=== PATIENT | female | born 1935 | race Caucasian/White ===

== ENCOUNTER 2019-02-26 05:26 | Inpatient (IN) ==
[2019-02-18 15:11] LABS: HEMOGLOBIN A1C 5.8 % (4.8-6.0)
[2019-02-19 14:09] LABS: URINE SOURCE CLEAN CATCH
[2019-02-19 14:59] LABS: BASO# 0.03 X1000 (0.0-0.2); BASO% 0.3 % (0.0-0.8); EOS# 0.24 X1000 (0.0-0.7); EOS% 2.2 % (0.0-10.0); HEMATOCRIT 39.8 % (37.0-47.0); HEMOGLOBIN 12.7 g/dL (12.0-16.0); IMM GRAN# 0.04 X1000 (0.0-0.04); IMM GRAN% 0.4 % (0.0-0.5); LYMPH# 2.87 X1000 (1.2-3.4); LYMPH% 26.7 % (20.5-51.1); MCH 28.3 PG (27-31); MCHC 31.9 g/dL (33-37); MCV 88.8 FL (81-99); MONO# 0.92 X1000 (0.11-0.59); MONO% 8.6 % (1.7-9.3); MPV 11.1 FL (7.4-10.4); NEUT# 6.63 X1000 (1.4-6.5); NEUT% 61.8 % (42.2-75.2); PLT 244 X1000 (130-400); RBC 4.48 XMIL (4.2-5.4); RDW 13.4 % (11.5-14.5); WBC 10.73 X1000 (4.8-10.8)
[2019-02-19 15:01] LABS: INR 0.96; PROTIME 12.9 Seconds (11.0-16.0)
[2019-02-19 15:02] LABS: PTT 27.6 Seconds (22.3-41.8)
[2019-02-19 15:03] LABS: BILIRUBIN URINE NEGATIVE (NEGATIVE); BLOOD URINE NEGATIVE (NEGATIVE); COLOR YELLOW; GLUCOSE URINE NEGATIVE (NEGATIVE); KETONE URINE NEGATIVE (NEGATIVE); LEUKOCYTES URINE LARGE (NEGATIVE); NITRITE URINE NEGATIVE (NEGATIVE); PROTEIN URINE TRACE mg/dL (NEGATIVE); SP GRAVITY URINE 1.018; TURBIDITY URINE CLEAR (CLEAR); UR EPITHELIAL CELLS <10 /HPF (<10); URINE BACTERIA 1+ /HPF; URINE RBC <10 /HPF (<10); URINE WBC 20-40 /HPF (<10); UROBILINOGEN URINE NORMAL (NORMAL)
[2019-02-19 15:13] LABS: CALCIUM 9.1 mg/dL (8.8-10.2); CREATININE 0.9 mg/dL (0.5-0.9); POTASSIUM 3.2 mmol/L (3.5-5.1)
[2019-02-26] MEDS ORDERED: REGLAN ONE (05:56)
[2019-02-26] MEDS ORDERED: LYRICA ONE (05:56)
[2019-02-26] MEDS ORDERED: LR 1,000 ML ONE (05:56)
[2019-02-26] MEDS ORDERED: KEFZOL 1 GM/D5W 1 GM/50 ML IVPB ONE (05:56)
[2019-02-26] MEDS ORDERED: PEPCID ONE (05:56)
[2019-02-26] MEDS ORDERED: COLACE ONE (05:56)
[2019-02-26] MEDS ORDERED: DIPRIVAN 1% ONE (06:28)
[2019-02-26] MEDS ORDERED: XYLOCAINE-MPF 2% ONE ×2 (06:29→08:09)
[2019-02-26] MEDS ORDERED: FENTANYL ONE (06:44)
[2019-02-26] MEDS ORDERED: NEO-SYNEPHRINE ONE (06:45)
[2019-02-26] MEDS ORDERED: SODIUM CHLORIDE 0.9% 20 ML ONE (06:45)
[2019-02-26] MEDS ORDERED: SODIUM CHLORIDE 0.9% ONE (07:05)
[2019-02-26] MEDS ORDERED: DURAMORPH ONE (07:05)
[2019-02-26] MEDS ORDERED: CYKLOKAPRON 1,000 MG/NS 1,000 MG/100 ML IVPB ONE ×2 (07:05→07:06)
[2019-02-26] MEDS ORDERED: VANCOMYCIN ONE (07:05)
[2019-02-26] MEDS ORDERED: EXPAREL 1.3% ONE (07:05)
[2019-02-26] MEDS ORDERED: MARCAINE 0.25% PF ONE (07:05)
[2019-02-26] MEDS ORDERED: TORADOL ONE ×2 (07:05→07:35)
[2019-02-26] MEDS ORDERED: OFIRMEV 1000 MG/ISOTONIC SOLN 1,000 MG/100 ML BOTTLE ONE (08:15)
[2019-02-26] MEDS ORDERED: ZOFRAN ONE (08:15)
[2019-02-26] MEDS ORDERED: DECADRON ONE (08:15)
[2019-02-26] MEDS ORDERED: AMIDATE ONE (08:19)
[2019-02-26 08:31] LABS: URINE SOURCE CATH
[2019-02-26 08:49] LABS: BILIRUBIN URINE NEGATIVE (NEGATIVE); BLOOD URINE NEGATIVE (NEGATIVE); COLOR YELLOW; GLUCOSE URINE NEGATIVE (NEGATIVE); KETONE URINE NEGATIVE (NEGATIVE); LEUKOCYTES URINE NEGATIVE (NEGATIVE); NITRITE URINE NEGATIVE (NEGATIVE); PROTEIN URINE NEGATIVE (NEGATIVE); SP GRAVITY URINE 1.008; TURBIDITY URINE CLEAR (CLEAR); UR EPITHELIAL CELLS <10 /HPF (<10); URINE BACTERIA NEGATIVE /HPF; URINE RBC <10 /HPF (<10); URINE WBC <10 /HPF (<10); UROBILINOGEN URINE NORMAL (NORMAL)
[2019-02-26] MEDS ORDERED: NS 1,000 ML ONE (09:47)
[2019-02-26] MEDS ORDERED: ZOFRAN PO PRN (10:00)
[2019-02-26] MEDS ORDERED: MORPHINE IV PRN ×3 (10:00)
[2019-02-26] MEDS ORDERED: OXY IR PO PRN (10:00)
[2019-02-26] MEDS ORDERED: XANAX PO PRN (16:45)
[2019-02-26] MEDS: KEFZOL 1 GM/D5W 1 GM/50 ML IVPB IV SCH ×2 (16:51→23:00)
[2019-02-26] MEDS: TYLENOL PO SCH ×2 (16:52→20:03)
[2019-02-26] MEDS: OXY IR PO PRN ×2 (18:50→19:31)
[2019-02-26] MEDS: PERIDEX MT SCH (20:03)
[2019-02-26] MEDS: CRESTOR PO SCH (20:03)
[2019-02-26] MEDS: COLACE PO SCH (20:04)
[2019-02-26] MEDS: NS 1,000 ML IV SCH (23:33)
[2019-02-27] MEDS: TYLENOL PO SCH ×4 (01:30→20:39)
[2019-02-27] MEDS: NEXIUM PO SCH (06:43)
[2019-02-27] MEDS: SYNTHROID PO SCH (06:44)
[2019-02-27 06:49] LABS: HEMATOCRIT 33.3 % (37.0-47.0); HEMOGLOBIN 10.6 g/dL (12.0-16.0)
[2019-02-27 06:59] LABS: AGAP 11; BUN 11 mg/dL (8-22); CALCIUM 7.9 mg/dL (8.8-10.2); CHLORIDE 100 mmol/L (98-107); COSMO 272; CREATININE 0.7 mg/dL (0.5-0.9); ESTIMATED GFR > 60; GLUCOSE 111 mg/dL (70-104); POTASSIUM 3.8 mmol/L (3.5-5.1); SODIUM 136 mmol/L (136-145); TCO2 25 mmol/L (25-35)
[2019-02-27] MEDS: ZYRTEC PO SCH (08:31)
[2019-02-27] MEDS: COLACE PO SCH ×2 (08:31→20:39)
[2019-02-27] MEDS: PLAVIX PO SCH (08:31)
[2019-02-27] MEDS: PERIDEX MT SCH ×2 (08:32→20:38)
[2019-02-27] MEDS: ASPIRIN PO SCH (08:32)
[2019-02-27] MEDS: SENOKOT PO SCH (08:32)
[2019-02-27] MEDS: TOPROL XL PO SCH (08:32)
[2019-02-27] MEDS: OXY IR PO PRN ×4 (08:39→20:38)
[2019-02-27] MEDS: CRESTOR PO SCH (20:38)
[2019-02-28] MEDS: TYLENOL PO SCH ×3 (02:05→16:06)
[2019-02-28] MEDS: NS 1,000 ML IV SCH (03:33)
[2019-02-28] MEDS: OXY IR PO PRN ×5 (03:34→20:54)
[2019-02-28] MEDS: NEXIUM PO SCH (06:30)
[2019-02-28] MEDS: SYNTHROID PO SCH (06:30)
[2019-02-28 06:37] LABS: HEMATOCRIT 31.6 % (37.0-47.0); HEMOGLOBIN 9.9 g/dL (12.0-16.0)
[2019-02-28] MEDS: ASPIRIN PO SCH (09:19)
[2019-02-28] MEDS: PLAVIX PO SCH (09:19)
[2019-02-28] MEDS: COLACE PO SCH ×2 (09:19→20:53)
[2019-02-28] MEDS: SENOKOT PO SCH (09:19)
[2019-02-28] MEDS: PERIDEX MT SCH ×2 (09:20→20:54)
[2019-02-28] MEDS: ZYRTEC PO SCH (09:20)
[2019-02-28] MEDS: TOPROL XL PO SCH (09:20)
[2019-02-28] MEDS: CRESTOR PO SCH (20:53)
[2019-03-01] MEDS: TYLENOL PO SCH ×4 (04:52→21:45)
[2019-03-01] MEDS: OXY IR PO PRN ×4 (05:22→23:31)
[2019-03-01] MEDS: NEXIUM PO SCH (06:56)
[2019-03-01] MEDS: SYNTHROID PO SCH (06:56)
[2019-03-01 07:02] LABS: HEMATOCRIT 31.9 % (37.0-47.0); HEMOGLOBIN 10.4 g/dL (12.0-16.0)
[2019-03-01] MEDS ORDERED: MILK OF MAGNESIA PO PRN (11:31)
[2019-03-01] MEDS: ZYRTEC PO SCH (12:07)
[2019-03-01] MEDS: PERIDEX MT SCH ×2 (12:07→21:45)
[2019-03-01] MEDS: ASPIRIN PO SCH (12:07)
[2019-03-01] MEDS: COLACE PO SCH ×2 (12:08→21:45)
[2019-03-01] MEDS: SENOKOT PO SCH (12:08)
[2019-03-01] MEDS: TOPROL XL PO SCH (12:08)
[2019-03-01] MEDS: PLAVIX PO SCH (12:09)
[2019-03-01] MEDS: NS 1,000 ML IV SCH (18:15)
[2019-03-01] MEDS: CRESTOR PO SCH (21:45)
[2019-03-02] MEDS: TYLENOL PO SCH ×4 (04:43→20:44)
[2019-03-02] MEDS: SYNTHROID PO SCH (06:16)
[2019-03-02] MEDS: NEXIUM PO SCH (06:16)
[2019-03-02] MEDS: COLACE PO SCH ×2 (10:17→20:44)
[2019-03-02] MEDS: TOPROL XL PO SCH (10:17)
[2019-03-02] MEDS: ASPIRIN PO SCH (10:17)
[2019-03-02] MEDS: SENOKOT PO SCH (10:18)
[2019-03-02] MEDS: OXY IR PO PRN (10:18)
[2019-03-02] MEDS: ZYRTEC PO SCH (10:19)
[2019-03-02] MEDS: PLAVIX PO SCH (10:19)
[2019-03-02] MEDS: PERIDEX MT SCH ×2 (10:19→20:44)
[2019-03-02] MEDS: NS 1,000 ML IV SCH (14:11)
[2019-03-02] MEDS: CRESTOR PO SCH (20:44)
[2019-03-03] MEDS: TYLENOL PO SCH ×2 (03:59→09:51)
[2019-03-03] MEDS: OXY IR PO PRN ×2 (06:56→09:52)
[2019-03-03] MEDS: NEXIUM PO SCH (06:56)
[2019-03-03] MEDS: SYNTHROID PO SCH (06:56)
[2019-03-03 07:36] VITALS: BP 124/40
[2019-03-03] MEDS: TOPROL XL PO SCH (09:51)
[2019-03-03] MEDS: ZYRTEC PO SCH (09:51)
[2019-03-03] MEDS: COLACE PO SCH (09:51)
[2019-03-03] MEDS: PERIDEX MT SCH (09:51)
[2019-03-03] MEDS: PLAVIX PO SCH (09:51)
[2019-03-03] MEDS: ASPIRIN PO SCH (09:51)
[2019-03-03] MEDS: SENOKOT PO SCH (09:52)
[2019-03-03] MEDS ORDERED: FLU VACCINE IM ONE (11:42)
== END 2019-03-03 12:32 ==
LOC: OR 05:26 → 4N 05:26
PROVIDERS: ADMIT Orthopaedic Surgery Adult Reconstructive Orthopaedic Surgery; ATTEND Orthopaedic Surgery Adult Reconstructive Orthopaedic Surgery